=== PATIENT | female | born 1960 | race Caucasian/White ===

== ENCOUNTER 2016-03-31 10:06 | Observation (INO) | payer BC ==
[~2016-03-31] VITALS: Ht 165.1 cm; Wt 88.2 kg
[2016-03-31] VITALS (8 sets, daily range): BP systolic 114–142; BP diastolic 63–86
[~2016-03-31 10:06] MED LIST: Norflex PO
--- OUTSIDE RECORDS SUMMARY | 2016-03-31 10:11 | XMS REPORT | Continuity of Care Document ---
Author Author [facility] Organization [facility] Address Unknown Phone Unavailable Allergies Active Description Code Type Severity Reaction Onset Reported/Identified Relationship to Patient Clinical Status Yes No Known Drug Allergies [id number] Drug Allergy Unknown N/ A 12/23/2014 Medications Problems Date Dx Coded Attending Type Code Diagnosis Diagnosed By 03/12/2014 EMANUEL PARRY DO Ot V76.12 12/23/2014 JOANA MCCULLOUGH APRN Ot M25.512 Procedures Results Encounters ACCT No. Visit Date/Time Discharge Status Pt. Type Provider Facility Loc./Unit Complaint [id number] 12/23/2014 10:53:00 2014 13:13:00 DIS Emergency JOANA MCCULLOUGH APRN [facility] ER [id number] 02/27/2014 10:40:00 2014 23:59:59 CLS Outpatient EMANUEL PARRY DO [facility] RAD
[2016-03-31] MEDS ORDERED: RX-NITROGLYCERIN 0.4 MG TAB BTL 25'S SL ONE ×2 (10:24→10:30)
[2016-03-31 10:29] LABS: BASOPHILS % (AUTO) 0 % (0-10); EOSINOPHILS # (AUTO) 0.2 10^3/uL (0.0-0.3); EOSINOPHILS % (AUTO) 3 % (0-10); LYMPHOCYTES # (AUTO) 1.7 X 10^3 (1.0-4.0); LYMPHOCYTES % (AUTO) 34 % (12-44); MEAN CORPUSCULAR HEMOGLOBIN 31 PG (25-34); MEAN CORPUSCULAR HGB CONC 34 G/DL (32-36); MEAN CORPUSCULAR VOLUME 91 FL (80-99); MEAN PLATELET VOLUME 10.5 FL (7.4-10.4); MONOCYTES # (AUTO) 0.8 X 10^3 (0.0-1.0); MONOCYTES % (AUTO) 15 % (0-12); NEUTROPHILS # (AUTO) 2.4 X 10^3 (1.8-7.8); NEUTROPHILS % (AUTO) 47 % (42-75); PLATELET COUNT 248 10^3/uL (130-400); RED BLOOD COUNT 4.59 10^6/uL (4.35-5.85); RED CELL DISTRIBUTION WIDTH 13.1 % (10.0-14.5)
[2016-03-31 10:41] LABS: PROTHROMBIN TIME PATIENT 12.5 SEC (12.2-14.7)
--- NOTE | 2016-03-31 10:44 | Diagnostic Imaging Report ---
INDICATION: Chest pain. PA chest obtained at 10:38 a.m. Heart and mediastinal silhouette are normal in appearance. The lungs are clear. There is no pneumothorax or pleural fluid. IMPRESSION: Negative chest. Dictated by: Dictated on workstation # [id number]
[2016-03-31 10:46] LABS: ALANINE AMINOTRANSFERASE 27 U/L (0-55); ALBUMIN 4.2 G/DL (3.2-4.5); ANION GAP 9 MMOL/L (5-14); ASPARTATE AMINO TRANSFERASE 23 U/L (5-34); BILIRUBIN,TOTAL 0.8 MG/DL (0.1-1.0); BLOOD UREA NITROGEN 17 MG/DL (7-18); BUN/CREATININE RATIO 20; CALCIUM 9.4 MG/DL (8.5-10.1); CARBON DIOXIDE 24 MMOL/L (21-32); CHLORIDE 107 MMOL/L (98-107); CREATININE SERUM 0.85 MG/DL (0.60-1.30); GFR ESTIMATED > 60; GLUCOSE 95 MG/DL (70-105); MAGNESIUM 2.2 MG/DL (1.8-2.4); POTASSIUM 4.1 MMOL/L (3.6-5.0); SODIUM 140 MMOL/L (135-145); TOTAL PROTEIN 7.4 G/DL (6.4-8.2)
[2016-03-31 10:52] LABS: MYOGLOBIN SERUM 26.6 NG/ML (10.0-92.0)
--- NOTE | 2016-03-31 11:34 | ED Chest Pain ---
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 PT DENIES SOA, OR NAUSEA. STATES DID HAVE SOME SWEATING. Nursing Sepsis Screen: No Definite Risk Source: patient Exam Limitations: no limitations History of Present Illness Time seen by provider: 10:15 Initial Comments This 56-year-old woman presents to the emergency room with complaints of pain in the left upper chest described as a burning or pressure sensation. Onset was at about 09:30. She felt clammy at the time of onset but denied any fever, nausea, vomiting, or lightheadedness. She has had some mild cough recently but nothing productive. She identified no exacerbating factors. Walking after onset of pain seemed to make it slightly better. She took 4 baby aspirin at work and presented to the emergency room. She reports pain is now minimal about 1/10. She denies any tobacco use, hypertension, hyperlipidemia, or heart disease in first-degree relatives. Allergies and Home Medications Allergies Coded Allergies: No Known Drug Allergies (Unverified , 12/23/14) Review of Systems Constitutional: see HPI EENTM: No Symptoms Reported Respiratory: No Symptoms Reported Cardiovascular: See HPI Gastrointestinal: No Symptoms Reported Genitourinary: No Symptoms Reported Musculoskeletal: no symptoms reported Skin: no symptoms reported Psychiatric/Neurological: No Symptoms Reported Endocrine: No Symptoms Reported Past Rartyso-Tlqvam-Zogqwq Hx Patient Social History Alcohol Use: Denies Use Recreational Drug Use: No Smoking Status: Never a Smoker Recent Foreign Travel: No Contact w/Someone Who Travel: No Recent Infectious Disease Expo: No Recent Hopitalizations: No Immunizations Up To Date Date of Influenza Vaccine: Nov 06, 2015 Surgeries HX Surgeries: Yes Surgeries: Section, Orthopedic, Tonsillectomy Respiratory Hx Respiratory Disorders: No Cardiovascular Hx Cardiac Disorders: No Neurological Hx Neurological Disorders: Yes Neurological Disorders: Headaches /Migraines 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 Genitourinary Hx Genitourinary Disorders: No Gastrointestinal Hx Gastrointestinal Disorders: No Musculoskeletal Hx Musculoskeletal Disorders: No Endocrine Hx Endocrine Disorders: No HEENT HX ENT Disorders: No Cancer Hx Cancer: No Psychosocial Hx Psychiatric Problems: No Integumentary HX Skin/Integumentary Disorder: No Blood Transfusions Hx Blood Disorders: No Physical Exam Vital Signs Vital Sign - Last 12Hours 03/31/16 10:13 Temp 97.3 Pulse 74 Resp 18 B/P 146/88 Pulse Ox 97 O2 Delivery Room Air FiO2 97 Capillary Refill : Less Than 3 Seconds General Appearance: No Apparent Distress WD/WN HEENT: PERRL/EOMI Normal ENT Inspection Neck: Normal Inspection Respiratory: Chest Non Tender Lungs Clear Normal Breath Sounds No Accessory Muscle Use No Respiratory Distress Cardiovascular: Regular Rate, Rhythm No Edema No Murmur Gastrointestinal: Normal Bowel Sounds Non Tender Soft Extremity: Normal Inspection Non Tender No Calf Tenderness No Pedal Edema Other (negative Laith) Neurologic/Psychiatric: Alert Oriented x3 No Motor/Sensory Deficits Normal Mood/Affect surveyor II-XII Norm as Tested Skin: Normal Color Warm/Dry Progress/Results/Core Measures Results/Orders Lab Results Laboratory Tests Test 03/31/16 10:20 Range/Units Activated Partial Thromboplast Time 29 24-35 SEC Alanine Aminotransferase (ALT/SGPT) 27 0-55 U/L Albumin 4.2 3.2-4.5 G/DL Alkaline Phosphatase 71 40-136 U/L Anion Gap 9 5-14 MMOL/L Aspartate Amino Transf (AST/SGOT) 23 5-34 U/L BUN/Creatinine Ratio 20 Basophils # (Auto) 0.0 0.0-0.1 10^3/uL Basophils (%) (Auto) 0 0-10 % Blood Urea Nitrogen 17 7-18 MG/DL Calcium Level 9.4 8.5-10.1 MG/DL Carbon Dioxide Level 24 21-32 MMOL/L Chloride Level 107 98-107 MMOL/L Creatinine 0.85 0.60-1.30 MG/DL Eosinophils # (Auto) 0.2 0.0-0.3 10^3/uL Eosinophils (%) (Auto) 3 0-10 % Estimat Glomerular Filtration Rate > 60 Glucose Level 95 70-105 MG/DL Hematocrit 42 35-52 % Hemoglobin 14.3 11.5-16.0 G/DL INR Comment 1.0 0.8-1.4 Lymphocytes # (Auto) 1.7 1.0-4.0 X 10^3 Lymphocytes (%) (Auto) 34 12-44 % Magnesium Level 2.2 1.8-2.4 MG/DL Mean Corpuscular Hemoglobin 31 25-34 PG Mean Corpuscular Hemoglobin Concent 34 32-36 G/DL Mean Corpuscular Volume 91 80-99 FL Mean Platelet Volume 10.5 H 7.4-10.4 FL Monocytes # (Auto) 0.8 0.0-1.0 X 10^3 Monocytes (%) (Auto) 15 H 0-12 % Myoglobin 26.6 10.0-92.0 NG/ML Neutrophils # (Auto) 2.4 1.8-7.8 X 10^3 Neutrophils (%) (Auto) 47 42-75 % Platelet Count 248 130-400 10^3/uL Potassium Level 4.1 3.6-5.0 MMOL/L Prothrombin Time 12.5 12.2-14.7 SEC Red Blood Count 4.59 4.35-5.85 10^6/uL Red Cell Distribution Width 13.1 10.0-14.5 % Sodium Level 140 135-145 MMOL/L Total Bilirubin 0.8 0.1-1.0 MG/DL Total Protein 7.4 6.4-8.2 G/DL Troponin I < 0.30 <0.30 NG/ML White Blood Count 5.0 4.3-11.0 10^3/uL My Orders Orders-CARISSA BANERJEE MD Cbc With Automated Diff (03/31/16 10:16) Magnesium (03/31/16 10:16) Chest 1 View, Ap/Pa Only (03/31/16 10:16) Ekg Tracing (03/31/16 10:16) Cardiac Profile 1 (03/31/16 10:16) Comprehensive Metabolic Panel (03/31/16 10:16) Myoglobin Serum (03/31/16 10:16) Protime With Inr (03/31/16 10:16) Partial Thromboplastin Time (03/31/16 10:16) O2 (03/31/16 10:16) Monitor-Rhythm Ecg Trace Only (03/31/16 10:16) Lipid Panel (04/01/16 06:00) Saline Lock/Iv-Start (03/31/16 10:16) Rx-Nitroglycerin Sl Tabs (Rx-Nitrostat S (03/31/16 10:30) Rx-Nitroglycerin Sl Tabs (Rx-Nitrostat S (03/31/16 10:24) Medications Given in ED Current Medications Medications Dose Ordered Sig/Suzie Route Start Time Stop Time Status Last Admin Dose Admin Nitroglycerin 0.4 mg UD ONCE SL 03/31/16 10:30 03/31/16 10:31 DC 03/31/16 10:25 0.4 MG Vital Signs/I&O Vital Sign - Last 12Hours 03/31/16 03/31/16 03/31/16 10:13 10:13 10:13 Temp 97.3 Pulse 74 Resp 18 B/P 146/88 Pulse Ox 97 O2 Delivery Room Air Room Air FiO2 97 Blood Pressure Mean: 107 Progress Note : Progress Note Patient's pain was waxing and waning ranging from 1/10 up to 4/10. Nitroglycerin did not seem to affect the pain. ECG Initial ECG Impression Date: Mar 31, 2016 Initial ECG Impression Time: 10:13 Initial ECG Rate: 81 Initial ECG Rhythm: Normal Sinus Initial ECG Intervals: Normal Initial ECG Impression: Normal Comment Normal sinus rhythm with no ST elevation or depression. No abnormal intervals or axis deviation. Diagnostic Imaging Diagonstic Imaging: Xray Plain Films/CT/US/NM/MRI: chest Comments Chest x-ray viewed by me and report reviewed. See report below: NAME: [facility] REC#: [id number] PT STATUS: REG ER : 1960 PHYSICIAN: CARISSA BANERJEE MD ADMIT DATE: 03/31/16/ER Draft Date of Exam:03/31/16 CHEST 1 VIEW, AP/PA ONLY INDICATION: Chest pain. PA chest obtained at 10:38 a.m. Heart and mediastinal silhouette are normal in appearance. The lungs are clear. There is no pneumothorax or pleural fluid. IMPRESSION: Negative chest. Dictated on workstation # [id number] Dict: 03/31/16 1041 Trans: 03/31/16 1044 JASS [id number] Interpreted by: JESÚS CHICAS MD Departure Communication Time/Spoke to Admitting Phy: 11:05 Communication Case was reviewed with Dr. Stovall. She would like to defer decision for disposition to cardiology. Time/Spoke to Consulting Physi: 11:10 Communication/Consulting Case was reviewed with Dr. Powell who would like patient admitted for 24-hour rule out. Patient is agreeable. Impression Impression: Primary Impression: Chest pain Qualified Code: R07.9 - Chest pain, unspecified Disposition: ADMITTED INPATIENT Condition: Stable Departure-Patient Inst. Decision time for Depature: 11:05 Referrals: FLETCHER STOVALL MD (PCP/Family) Primary Care Physician CARISSA BANERJEE MD Mar 31, 2016 11:34
--- NOTE | 2016-03-31 12:23 | History & Physicial ---
History of Present Illness History of Present Illness Reason for visit/HPI PT PRESENTED TO THE HOSPITAL AFTER ACUTE CHEST PAIN EPISODE, WITH A BURNING AND PRESSURE IN HER CENTRAL CHEST. SHE TOOK 4 BABY ASPIRIN, AND PRESENTED TO THE EMERGENCY DEPARTMENT. SHE REPORTS THAT SHE WAS AT WORK, STARTED TO FEEL CLAMMY AND HAD THE ACUTE CHEST PAIN EPISODE. SHE DOES NOT REPORT ANY SPECIFIC EXACERBATING EVENTS, NOR ANY SPECIFIC EVENTS WHICH HELPED TO RESOLVE HER CHEST PAIN. SHE DENIED ANY RESIDUAL CHEST PAIN UPON MY EVALUATION. Date of Admission Mar 31, 2016 at 11:34 I consulted on this patient on 03/31/16 12:23 Attending Physician Fletcher Stovall MD Admitting Physician Fletcher Stovall MD Consult Allergies and Home Medications Allergies Coded Allergies: No Known Drug Allergies (Unverified , 12/23/14) Home Medications Aspirin 325 Mg Tablet.dr #30 325 MG PO DAILY Prescribed by: JOAN DELGADO on 03/31/16 3275 Past Rmfjuml-Nyxazj-Ezndbm Hx Patient Social History Marrital Status: Living Status: LIVES AT HOME WITH SPOUSE, WORKS IN [employer] Employed/Student: employed Alcohol Use: Denies Use Recreational Drug Use: No Smoking Status: Never a Smoker Recent Foreign Travel: No Contact w/other who traveled: No Recent Hopitalizations: No Recent Infectious Disease Expo: No Immunizations Up To Date Date of Influenza Vaccine: Nov 06, 2015 Surgeries HX Surgeries: Yes Surgeries: Section, Orthopedic, Tonsillectomy Respiratory Hx Respiratory Disorders: No Cardiovascular Hx Cardiovascular Disorders: No Neurological Hx Neurological Disorders: Yes Neurological Disorders: Headaches /Migraines Genitourinary Hx Genitourinary Disorders: No Gastrointestinal Hx Gastrointestinal Disorders: No Musculoskeletal Hx Musculoskeletal Disorders: No Endocrine Hx Endocrine Disorders: No HEENT HX ENT Disorders: No Cancer Hx Cancer: No Psychosocial Hx Psychiatric Problems: No Integumentary HX Skin/Integumentary Disorder: No Blood Transfusions Hx Blood Disorders: No Reviewed Nursing Assessment Reviewed/Agree w Nursing PMH: Yes Family Medical History Significant Family History: Hypertension Constitutional: No chills, No diaphoresis, No fever, No malaise, No weakness EENTM: No hoarseness, No throat swelling Respiratory: No cough, No dyspnea on exertion Cardiovascular: chest pain (INITIALLY ON ADMISSION)No palpitations Gastrointestinal: No abdominal pain, No constipation, No diarrhea Genitourinary: no symptoms reported Musculoskeletal: No back pain, No joint pain, No muscle stiffness Skin: no symptoms reported Psychiatric/Neurological: Denies Anxiety, Denies Depressed All Other Systems Reviewed Negative Unless Noted: Yes Physical Exam Vital Signs Capillary Refill : Less Than 3 Seconds General Appearance: No Apparent Distress WD/WN Eyes: Bilateral Eye EOMI, Bilateral Eye Normal Inspection, Bilateral Eye PERRL HEENT: PERRL/EOMI Pharynx Normal Neck: Full Range of Motion Supple Respiratory: Chest Non Tender Lungs Clear Normal Breath Sounds Cardiovascular: Regular Rate, Rhythm No Edema Gastrointestinal: Normal Bowel Sounds Soft Rectal: Deferred Extremity: Normal Capillary Refill No Calf Tenderness No Pedal Edema Neurologic/Psychiatric: Alert Oriented x3 No Motor/Sensory Deficits Normal Mood/Affect Skin: Normal Color Warm/Dry Lymphatic: No Adenopathy Assessment/Plan Assessment and Plan CHEST PAIN HYPERTENSION PT ADMITTED TO THE HOSPITAL FOR RULE OUT OF CARDIAC INVOLVEMENT IN HER CHEST PAIN. ANTIHYPERTENSIVE MEDICATION STARTED. DR. QUINONEZ DID A RULE OUT ON THE PATIENT - SEE HIS NOTE. PT WAS DISCHARGED TO HOME AFTER RULE OUT - PT TO FOLLOW UP WITH DR. QUINONEZ OUTPATIENT. Admission Diagnosis CHEST PAIN HYPERTENSION Clinical Quality Measures AMI/AHF: ASA po Prior to arrival: Yes (324mg asa) FLETCHER STOVALL MD Mar 31, 2016 12:23
[2016-03-31] MEDS ORDERED: ONDANSETRON 4 MG/2 ML (SDV) Z0FRAN IVP PRN (12:30)
[2016-03-31] MEDS ORDERED: PATIENT MAY USE OWN MEDS, ALL PO SCH (12:30)
[2016-03-31] MEDS ORDERED: NITROGLYCERIN SUBLINGUAL 0.4 MG TAB (NITROSTAT) SL PRN (12:30)
--- NOTE | 2016-03-31 14:19 | Consultation-Cardiology ---
HPI-Cardiology Cardiology Consultation: Date of Consultation 03/31/16 Date of Admission Attending Physician Lisa Stovall MD Admitting Physician Lisa Stovall MD Consulting Physician Moise POWELL MD HPI: Chief Complaint: chest pain this is a 56-year-old lady with no significant risk factors for coronary artery disease. She presented with prolonged episode of chest pain since 9.30 this morning. it was substernal with no significant radiation. There were no associated cardiac symptoms. There were no exacerbating or relieving factors. On my examination she did not have any further chest pain. Review of Systems-Cardiology Review of Systems Constitutional: No As described under HPI, No no symptoms reported, No chills, No fever, No lightheadedness, No malaise, No tiredness, No weight loss, No weight gain, No other Eyes: No As described under HPI, No no symptoms reported, No blindness, No blurred vision, No contact lenses, No drainage, No decreased acuity, No foreign body sensation, No glasses, No inflammation, No pain, No photophobia, No previous injury, No shadows, No tunnel vision, No other, No vision change Ears/Nose/Throat: No As described under HPI, No no symptoms reported, No chronic hearing loss, No epistaxis, No ear discharge, No ear pain, No loose teeth, No mouth pain, No mouth swelling, No nasal drainage, No nose pain, No recent hearing loss, No throat pain, No throat swelling, No ulcerations, No other Respiratory: No no symptoms reported, No As described under HPI, No cough, No orthopnea, No shortness of breath, No SOB with excertion, No SOB at rest, No stridor, No wheezing, No other Cardiovascular: No no symptoms reported, No As described under HPI, chest painNo edema, No irregular heart rate, No lightheadedness, No palpitations, No syncope, No other Gastrointestinal: No no symptoms reported, No As described under HPI, No abdomen distended, No abdominal pain, No blood streaked bowels, No constipation , No diarrhea, No difficulty swallowing, No nausea, No poor appetite, No poor fluid intake, No rectal bleeding, No vomiting, No other, No nausea/vomiting/ diarrhea, No stool coloration changes Genitourinary: No no symptoms reported, No As described under HPI, No burning, No dysuria, No discharge, No frequency, No flank pain, No hematuria, No incontinence, No pain, No urgency, No other, No urine frequency changes, No urine coloration changes Musculoskeletal: No no symptoms reported, No As describe under HPI, No back pain, No gout, No joint pain, No joint swelling, No muscle pain, No muscle stiffness, No neck pain, No other Skin: No no symptoms reported, No As described under HPI, No change in color, No change in hair/nails, No dryness, No lesions, No lumps, No rash, No other, No skin related problems, No ulcerations, No rash on exposed areas, No ulcerations on exposed areas Psychiatric/Neurological: No As described under HPI, No anxiety, No depression , No emotional problems, No focal weakness, No headache, No no symptoms reported , No numbness, No other, No pre-existing deficit, No seizure, No syncope, No tingling, No tremors, No weakness Hematologic: No no symptoms reported, No As described under HPI, No anemia, No blood clots, No easy bleeding, No easy bruising, No swollen glands, No other, No bleeding abnormalities KZM-Xbfmib-Sryzbw Hx Patient Social History Alcohol Use: Denies Use Recreational Drug Use: No Smoking Status: Never a Smoker Recent Foreign Travel: No Recent Infectious Disease Expo: No Hospitalization with Isolation: Denies Physical Abuse Screen: No Sexual Abuse: No Immunizations Up To Date Date of Influenza Vaccine: Nov 24, 2015 Past Medical History PMH As described under Assessment. Family Medical History Family History: Myocardial infarction 19 FATHER Allergies and Home Medications Allergies Coded Allergies: No Known Drug Allergies (Unverified , 12/23/14) Home Medications No Active Prescriptions or Reported Meds Physical Exam-Cardiology Physical Exam Vital Signs/I&O Vital Sign - Last 12Hours 03/31/16 03/31/16 03/31/16 03/31/16 10:13 10:13 10:13 12:47 Temp 97.3 Pulse 74 79 Resp 18 18 B/P 146/88 Pulse Ox 97 96 O2 Delivery Room Air Room Air FiO2 97 03/31/16 03/31/16 03/31/16 03/31/16 13:00 13:00 13:14 13:18 Temp 97.4 Pulse 68 75 75 Resp 16 B/P 142/86 131/84 Pulse Ox 98 97 O2 Delivery Room Air Room Air Capillary Refill : Less Than 3 Seconds Constitutional: No appears stated age, No AAO x 3, No apparent distress, No PERRL, No well-developed, No well-nourished, No other HEENT: No PERRL, No normal ENT inspection, No TMs normal, No pharynx normal, No scleral icterus (R), No scleral icterus (L), No pale conjunctivae (R), No pale conjunctivae (L), No photophobia, No TM abnormal (R), No TM abnormal (L), No pharyngeal erythema, No tonsillar exudate, No other, No discharge, No EOMI, No hearing is well preserved, No hard of hearing, No oral hygience is good, No ulceration, No xanthelasmas are seen Neck: No carotid bruit, carotid pulses are 2 + bilaterally Respiratory: No accessory muscle use, No respiratory distress, No chest tender , No chest expansion is symmetric, No chest is bilaterally symmetric, No lungs clear to percussion, No lungs clear to auscultation, No crackles, No rhonchi, No rales, No stridor, No wheezing, No pleural rub, No other Cardiovascular: No regular rate-rhythm, No irregularly irregular, No extra beats, No parasternal heave is noted, No JVD, No edema, No bradycardia, No tachycardia, No point of maximal impulse, No cardiac thrills are palpable, No S1 and S2, No gallop/S3, No gallop/S4, No diastolic murmur, No systolic murmur, No friction rub, No click, No other Gastrointestinal: No tender, No soft, No round, No distended, No pulsatile mass , No organomegaly, No guarding, No rebound, No tenderness, No hernia, No mass, No audible bowel sounds, No abnormal bowel sounds, No abdominal bruits, No spleenomegaly, No other Rectal: deferred Extremities: No normal range of motion, No non-tender, No normal inspection, No pedal edema, No calf tenderness, No normal capillary refill, No pelvis stable , No calf tenderness, No inflammation, No pedal edema, No slow capillary refill , No swelling, No other, No abrasion, No clubbing, No cyanosis, No ecchymosis, No laceration, No no lower extremity edema bilateral, No significant edema, No tenderness, No wound Neurologic/Psychiatric: No business resiliency manager II-XII nml as tested, No no motor/sensory deficits, alertNo normal mood/affect, oriented x 3No abnormal cerebellar tests , No abnormal business resiliency manager II-XII, No abnormal gait, No aphasia, No EOM palsy, No facial droop, No motor weakness, No sensory deficit, No depressed affect, No disoriented x 3, No other, No grossly intact, power is 5/5 both on sides Skin: No normal color, No warm/dry, No cyanosis, No cool, No diaphoresis, No damp, No ecchymosis, No jaundice, No mottled, No pallor, No rash, No tattoos/ piercings, No ulcerations, No rash on exposed areas, No ulcerations on exposed areas, No other Data Review Labs Laboratory Tests 03/31/16 10:20: Activated Partial Thromboplast Time 29, Alanine Aminotransferase (ALT/SGPT) 27, Albumin 4.2, Alkaline Phosphatase 71, Anion Gap 9, Aspartate Amino Transf (AST/ SGOT) 23, BUN/Creatinine Ratio 20, Basophils # (Auto) 0.0, Basophils (%) (Auto) 0, Blood Urea Nitrogen 17, Calcium Level 9.4, Carbon Dioxide Level 24, Chloride Level 107, Creatinine 0.85, Eosinophils # (Auto) 0.2, Eosinophils (%) (Auto) 3, Estimat Glomerular Filtration Rate > 60, Glucose Level 95, Hematocrit 42, Hemoglobin 14.3, INR Comment 1.0, Lymphocytes # (Auto) 1.7, Lymphocytes (%) ( Auto) 34, Magnesium Level 2.2, Mean Corpuscular Hemoglobin 31, Mean Corpuscular Hemoglobin Concent 34, Mean Corpuscular Volume 91, Mean Platelet Volume 10.5H, Monocytes # (Auto) 0.8, Monocytes (%) (Auto) 15H, Myoglobin 26.6, Neutrophils # (Auto) 2.4, Neutrophils (%) (Auto) 47, Platelet Count 248, Potassium Level 4.1, Prothrombin Time 12.5, Red Blood Count 4.59, Red Cell Distribution Width 13.1, Sodium Level 140, Total Bilirubin 0.8, Total Protein 7.4, Troponin I < 0.30, White Blood Count 5.0 ECG Impression ECG Initial ECG Rhythm: Normal Sinus Initial ECG Impression: Normal A/P-Cardiology Assessment/Admission Diagnosis chest pain Plan this is a 56-year-old lady with chest pain. No significant coronary artery disease. First set of troponin is negative. EKG is normal. We'll perform another troponin within 6 hours of her first troponin. If that is also negative she will be discharged to have an outpatient stress test early next week. We will give her a baby aspirin to take till her stress test. I also recommended that she seeks immediate medical attention if she has prolonged chest pain or recurrent chest pain. I also gave her the contact info of my office. Thank you for your consultation. Please call me if you have any questions. Ramila Powell MD, FACP, FACC, FSCAI, FHRS, CCDS Interventional Cardiology Cardiac Electrophysiology Vascular Medicine and Endovascular Interventions Clinical Quality Measures AMI/AHF: ASA po Prior to arrival: Yes (324mg asa) DVT/VTE Risk/Contraindication: Risk Factor Score Per Nursin RFS Level Per Nursing on Admit: 2=Moderate Moise POWELL MD Mar 31, 2016 2:19 pm
[2016-03-31] MEDS ORDERED: ASPI325T32 PO (17:48)
[2016-03-31] MEDS ORDERED: LISI10TA2 PO (17:53)
[2016-03-31] MEDS ORDERED: CATHETER FLUSH 10 ML SYR IV PRN (19:15)
[2016-03-31] MEDS ORDERED: CATHETER FLUSH 10 ML SYR IV SCH (22:00)
[2016-04-01] MEDS ORDERED: ASPIRIN E.C. 325 MG (ECOTRIN) TABLET PO SCH (09:00)
--- NOTE | 2016-04-13 09:04 | Physician Query-Final Dx ---
IESHA VANCE 04/13/16 0904: Final Diagnosis Give Final Diagnosis Please give Final Diagnosis FLETCHER KNIGHT MD 04/19/16 0922: Final Diagnosis Give Final Diagnosis CHEST PAIN HYPERTENSION IESHA VANCE Apr 13, 2016 09:04 FLETCHER KNIGHT MD Apr 19, 2016 09:22
[2016-06-05] MEDS ORDERED: PANT40SU PO (09:25)
[2016-06-05] MEDS ORDERED: SUCR1TAB36 PO (09:25)
== END 2016-03-31 17:48 | disposition home or self-care (01) ==
LOC: EDUNIT# 10:06 → ER 10:07 → UNDOADMOB 11:34 → ICU 11:34 → UNDODISOB 17:48
PROVIDERS: ADMIT Family Medicine; ATTEND Family Medicine
DX: R07.9 Chest pain, unspecified (principal)
CPT/HCPCS: 36415; 71010; 80053; 83735; 83874; 84484; 85025; 85610; 85730; 93005; 93041; G0378

== ENCOUNTER → 2016-05-04 | Outpatient (CLI) | payer BC ==
[~2016-05-04] VITALS: Ht 165.1 cm; Wt 86.2 kg
[~2016-05-04] MED LIST changes: +ASPI-808 PO; +ASPI325T32 PO; +CATHETER FLUSH 10 ML SYR IV PRN; +CETI10TA20 PO; +LISI10TA2 PO; +PANT40SU PO; +REGADENOSON 0.4 MG/5 ML SYR (LEXISCAN) IV ONE; +SUCR1TAB36 PO
[2016-05-04 12:57] VITALS: BP 142/72
[2016-05-04 13:31] VITALS: BP 119/63
[2016-05-04 13:33] VITALS: BP 113/63
--- NOTE | 2016-05-05 07:32 | STRESS TEST ---
PROCEDURE PHYSICIAN: LILY QUINONEZ PHARMACOLOGICAL NUCLEAR STRESS REPORT DATE OF PROCEDURE: 04/24/2016 PRIMARY PHYSICIAN: Dr. Lisa Stovall. DIAGNOSES: Chest pain. PROCEDURE DETAILS: The patient was brought to the stress lab after informed consent was taken. Stress test was performed based on the Lexiscan protocol. 0.4 mg IV Lexiscan was given intravenously according to the protocol. Low grade exercise was performed. Resting heart rate was 76 with blood pressure 142/72. Resting rhythm was sinus rhythm. Maximum heart rate was 132 bpm and blood pressure was 142/72 mmHg. There was no significant ST-T wave abnormalities, chest pain or arrhythmias. 10.71 mCi of Myoview were given for rest imaging and 29.7 mCi of Myoview were given for stress imaging. TID was 0.84. EF was 71%. There was no perfusion abnormalities. Gated images shows normal wall motion. CONCLUSION: 1. Pharmacologic nuclear stress test is negative for ischemia. 2. Myocardial perfusion imaging shows no perfusion defect during stress or rest imaging Job ID: [id number] Dictated Date: 05/04/2016 14:56:07 [employer]er [employer] Date: 05/05/2016 07:27:28 / nadine
== END ==
LOC: CARD 11:07
PROVIDERS: ATTEND Internal Medicine Interventional Cardiology
DX: R07.9 Chest pain, unspecified (principal)
CPT/HCPCS: 78452; 93017

== ENCOUNTER → 2016-05-24 | Outpatient (CLI) | payer BC ==
[~2016-05-24] MED LIST changes: -CATHETER FLUSH 10 ML SYR IV PRN; -REGADENOSON 0.4 MG/5 ML SYR (LEXISCAN) IV ONE
--- NOTE | 2016-05-24 18:10 | Diagnostic Imaging Report ---
Bilateral screening mammogram The current study was also evaluated with a Computer Aided Detection (CAD) system. INDICATION: Screening. No current complaints stated on the questionnaire. COMPARISON: 02/27/14. FINDINGS: The breasts are composed of heterogeneously dense parenchyma which may decrease mammographic sensitivity. There is an overall decrease in the breast parenchymal density particularly when compared to 2010. There are punctate calcifications seen in both breasts. Allowing for technique and positional differences, no suspicious change is seen. IMPRESSION: Dense breasts with no definite change. ACR BI-RADS Category 2: Benign findings. Result letter will be mailed to the patient. Note: At least 10% of breast cancer is not imaged by mammography. Dictated by: Dictated on workstation # [id number]
== END ==
LOC: RAD 07:25
PROVIDERS: ATTEND Obstetrics & Gynecology
DX: Z12.31 Encounter for screening mammogram for malignant neoplasm of breast (principal)
CPT/HCPCS: 77067

== ENCOUNTER 2016-05-31 05:38 | Outpatient (CLI) | payer BC ==
[~2016-05-31] VITALS: Ht 165.1 cm; Wt 86.2 kg
[~2016-05-31 05:38] MED LIST changes: -ASPI-808 PO; -CETI10TA20 PO; -PANT40SU PO; -SUCR1TAB36 PO
[2016-05-31] MEDS ORDERED: LISI10TA2 PO (11:07)
[2016-05-31] MEDS ORDERED: ASPI-808 PO (11:07)
[2016-05-31] MEDS ORDERED: CETI10TA20 PO (11:07)
[2016-06-05] MEDS ORDERED: SUCR1TAB36 PO (09:25)
[2016-06-05] MEDS ORDERED: PANT40SU PO (09:25)
== END 2016-05-31 11:13 ==
LOC: PREOP 05:38
PROVIDERS: ATTEND Surgery
DX: Z01.818 Encounter for other preprocedural examination (principal); R19.5 Other fecal abnormalities; K25.9 Gastric ulcer, unspecified as acute or chronic, without hemorrhage or perforation

== ENCOUNTER 2016-06-05 07:24 | Day surgery (SDC) | payer BC ==
[~2016-06-05] VITALS: Ht 165.1 cm; Wt 86.2 kg
[~2016-06-05 07:24] MED LIST changes: +ASPI-808 PO; +CETI10TA20 PO
[2016-06-05] MEDS ORDERED: PROPOFOL INJECTION 50 ML IV ONE (07:51)
[2016-06-05] MEDS ORDERED: MIDAZOLAM 5 MG/5 ML (VERSED) VIAL ONE (07:51)
[2016-06-05] MEDS ORDERED: NS IV 1000 ML 1,000 ML IV STA (07:54)
[2016-06-05 08:09] VITALS: BP 117/79
--- NOTE | 2016-06-05 08:46 | Progress Note-Pre Operative ---
Pre-Operative Progress Note H&P Reviewed The H&P was reviewed, patient examined and no changes noted. Date H&P Reviewed: June 05, 2016 Time H&P Reviewed: 08:38 Pre-Operative Diagnosis: Gastritis, + FOB test ONEIL BUTLER DO June 05, 2016 08:46
--- NOTE | 2016-06-05 09:16 | Progress Note-Post Operative ---
Post-Operative Progess Note Surgeon (s)/Cloth Sander (s) Surgeon ONEIL BUTLER DO Cloth Sander: none Pre-Operative Diagnosis Gastritis, + FOB test Post-Operative Diagnosis Gastritis Colon Polyp Internal Hem Post-Op Procedure Note Date of Procedure: June 05, 2016 Name of Procedure Performed: EGD with bx Colon with bx Description of the Procedure: as above Findings of the Procedure gastritis, polyp, internal hemorrhoids Anesthesia Type IV sedation Estimated blood loss (mL): scant Specimen(s) collected/removed antral bx, rectal polyp bx ONEIL BUTLER DO June 05, 2016 09:16
[2016-06-05] MEDS ORDERED: PANT40SU PO (09:25)
[2016-06-05] MEDS ORDERED: SUCR1TAB36 PO (09:25)
--- NOTE | 2016-06-05 09:27 | Endoscopy Discharge Instruct ---
Endo Procedure/Findings Findings 1.: Gastritis 2.: Polyp 3.: Internal Hemorrhoids Discharge Instructions - Activity: You might feel a little sleepy until tomorrow. This is due to the medicine you received to relax you. Until tomorrow, you should: NOT drive a car, operate machinery or power tools. NOT drink any alcoholic beverages. NOT make any important decisions or sign importortant papers. Do not return to work until tomorrow, unless otherwise instructed. Resume previous activities tomorrow. Diet: Start by taking liquids. If you tolerate liquids, advance to solid food. Follow up appt in one week, call [phone] Instructions: 1.: Colonscopy in 5 years Notify Physician - If you experience excessive bleeding, unusual abdominal pain, fever, or chest pain, contact your doctor immediately. Phone number [phone] Follow-Up: - I have received and understand the above instructions and will call my doctor if I have any further questions. Patient Signature Date Nurse Signature Other (Relationship) ONEIL BUTLER DO June 05, 2016 09:27
[2016-06-05 09:30] VITALS: BP 110/67
[2016-06-05 10:00] VITALS: BP 114/76
--- NOTE | 2016-06-05 10:00 | OPERATIVE REPORT ---
DATE OF SERVICE: 06/05/2016 PREOPERATIVE DIAGNOSES: 1. Gastritis. 2. Positive fecal occult blood test. POSTOPERATIVE DIAGNOSES: 1. Gastritis. 2. Colon polyps. 3. Internal hemorrhoids. 4. Hiatal hernia. PROCEDURE: 1. EGD with biopsy. 2. Colonoscopy with biopsy. SURGEON: Eldon Bueno D.O. CELERY WRAPPER: None. ANESTHESIA: IV sedation by the FINAL ASSEMBLY INSPECTOR. BLOOD LOSS: Scant. SPECIMENS: 1. Duodenal biopsy. 2. Antral biopsy. 3. Colon polyp biopsy. FLUIDS: Per anesthesia. POSTOPERATIVE CONDITION: Stable. INDICATIONS FOR PROCEDURE: The patient is a 56-year-old female who has been complaining of some stomach pain, it sounds like gastritis and had a positive fecal occult blood test and needed an EGD and a colonoscopy. FINDINGS: The patient had some redness, it looked like gastritis in the stomach, and actually had some what looked like duodenitis as well. Biopsy was performed. She had a small polyp in the rectum and she had some internal hemorrhoids, otherwise no other obvious pathology in the colon. PROCEDURE NOTE: After informed consent was obtained, the patient was brought to the endoscopy suite, placed in the bed in the left lateral decubitus position. She was administered IV sedation. Vitals were monitored by the CNRA, started with an EGD. I placed a scope down the mouth, down the esophagus into the stomach. In the stomach, I saw some gastritis. I took a picture of this and then pushed into the first portion of the duodenum, again saw some duodenitis, took a picture and then did a biopsy here. I pushed into the second portion of the duodenum. This actually looked okay. No redness or erythema. I pulled back into the antrum and took another biopsy, retroflexed, saw a mild to moderate hiatal hernia. I took a picture of this. The gastroesophageal junction looked okay. I then pulled back from the stomach into the esophagus and then up and out the mouth. I then switched scopes and started the colonoscopy. I inserted the scope pushed all the way in to about 150 cm, getting to the cecum. I took a picture of the appendiceal orifice and able to get into the terminal ileum. I took a picture of the terminal ileum. I did not see any obvious pathology here and then slowly withdrew the scope insufflating to look circumferentially at the ramsay, looking at the cecum, up the ascending colon to the hepatic flexure and then down the transverse colon to the splenic flexure, then down the descending colon into the sigmoid and finally into the rectum. In the rectum, I saw a small flat polyp. I elected to do a biopsy of this and then retroflexed in the rectal vault. I saw some internal hemorrhoids, took a picture of this and then removed the scope. The patient tolerated the procedure, and she was transferred to the recovery room in stable condition. Job ID: [id number] DocumentID: [id number] Dictated Date: 06/05/2016 09:30:03 Home Economist Consumer Service Date: 06/05/2016 09:59:51 Dictated By: DO JAZMINE FELICIANO
[2016-06-05 10:13] VITALS: BP 114/76
== END 2016-06-05 10:17 | disposition home or self-care (01) ==
LOC: ENDO 07:24
PROVIDERS: ATTEND Surgery
DX: K29.60 Other gastritis without bleeding (principal); K63.5 Polyp of colon; K64.8 Other hemorrhoids; K44.9 Diaphragmatic hernia without obstruction or gangrene; K29.80 Duodenitis without bleeding; I10 Essential (primary) hypertension; Z79.899 Other long term (current) drug therapy
CPT/HCPCS: 88305; 88342

== ENCOUNTER → 2019-03-28 | Outpatient (CLI) | payer BC ==
[~2019-03-28] MED LIST changes: +PANT40SU PO; +SUCR1TAB36 PO
--- NOTE | 2019-03-28 12:53 | Diagnostic Imaging Report ---
EXAM: Digital mammogram, bilateral screening. COMPARISONS: 05/25/2016 and 03/03/2014. There are no current complaints. The current study was also evaluated with a Computer Aided Detection (CAD) system. FINDINGS: The fibroglandular tissue in both breasts is heterogeneously dense. This does limit the sensitivity of this exam. Overall, there does not appear to have been any significant change when compared to the prior study. No primary or secondary sign of malignancy is noted. IMPRESSION: 1. There is no evidence of malignancy. 2. The patient should have her annual bilateral screening mammogram on schedule in March of 2020. ACR Category 1 ACR BI-RADS Category 1: Negative. Result letter will be mailed to the patient. Note: At least 10% of breast cancer is not imaged by mammography. Dictated by: Dictated on workstation # [id number]
== END ==
LOC: RAD 07:53
PROVIDERS: ATTEND Nurse Practitioner Family
DX: Z12.31 Encounter for screening mammogram for malignant neoplasm of breast (principal)
CPT/HCPCS: 77067